=== PATIENT | female | born 1990 | race Caucasian/White ===

== ENCOUNTER 2019-04-02 07:10 | Day surgery (SDC) | payer MEDICAID ==
[2019-04-02] MEDS ORDERED: LIDOCAINE 2% MDV (20MG/ML) 20ML VIAL IV ONE (07:11)
[2019-04-02] MEDS ORDERED: PROPOFOL 10 MG/ML VIAL IV ONE (07:11)
--- NOTE | 2019-04-03 10:40 | Operative Note ---
OPERATION: COLONOSCOPY with random biopsy and cold forceps polypectomy. PREOPERATIVE DIAGNOSIS: Change in bowel habits and diarrhea. POSTOPERATIVE DIAGNOSES: 1. Colonic diverticulosis. 2. Sigmoid colon polyp. 3. Rule out occult microscopic colitis. PROCEDURE: After informed consent was obtained from the patient, she was placed in the left lateral decubitus position in the endoscopy suite, sedated and monitored by the department of anesthesia. Digital rectal examination was unremarkable. A well-lubricated [id number] colonoscope was inserted into the rectum and advanced to the cecum. Preparation quality was good. The cecum, cecal bulb, and distal portion of the terminal ileum were unremarkable. The ascending colon demonstrated scattered small diverticula. The remainder of the ascending colon, transverse colon, and descending colon were unremarkable other than a few diverticula. In the descending colon as well as sigmoid colon, there was a 3-4 mm sessile sigmoid colon polyp removed with a cold forceps. The remainder of the sigmoid colon and rectum were otherwise unremarkable. J-turn views of the anorectum were unrevealing. The endoscope was straightened, the rectal ampulla deflated, and the endoscope was removed. It should be noted that random biopsies were obtained from the colon to rule out microscopic colitis. RECOMMENDATIONS: At this point, I am suspicious the patient may have an irritable bowel and/or may even have some superimposed bile salt-induced diarrhea related to her recent cholecystectomy. If her diarrhea is persisting, a trial of Questran would seen reasonable. We will otherwise await the results of the tissue histology of the biopsies and the polyp that was removed. As always, thank you for allowing me to participate in the healthcare of your patients. ALEJANDRA
== END 2019-04-02 09:00 | disposition home or self-care (01) ==
LOC: HOP 07:10
PROVIDERS: ATTEND Internal Medicine Gastroenterology
DX: R19.4 Change in bowel habit (principal); R19.7 Diarrhea, unspecified; K76.0 Fatty (change of) liver, not elsewhere classified; D12.5 Benign neoplasm of sigmoid colon; K57.30 Diverticulosis of large intestine without perforation or abscess without bleeding; K21.9 Gastro-esophageal reflux disease without esophagitis
CPT/HCPCS: 84703